=== PATIENT | male | born 1995 | race Caucasian/White ===

== ENCOUNTER 2017-05-24 01:58 | Emergency (ER) | payer BC, OTHER ==
--- NOTE | 2017-05-24 02:04 | PDOC ---
History of Present Illness - General Chief Complaint: Respiratory Stated Complaint: FEELS SHAKY,CANT CATCH MY BREATH Time Seen by Provider: 05/24/17 02:03 - History of Present Illness Initial Comments: This 22-year-old man with no previous medical history presents with sensation of not being able to catch his breath. Patient states that he usually falls asleep easily around midnight; tonight, he was unable to sleep after lying in his bed for an hour to 2 hours. He feels head fullness (states that it is not headache pain) and feeling that he could not catch his breath. He also had unusual feelings around his mouth (not numbness; states that he thought both corners of his mouth were drooping). Although he admits to feeling anxious/ jittery, he denies any new stress in his life. No history of anxiety or panic attacks. He had feeling of chilliness but no measured fever this evening. He denies cough/sore throat/runny nose or Nasal congestion. He has not had any nausea/ vomiting/diarrhea. He denies chest pain/abdominal pain. There is no neck pain or other muscle spasms/pain. Patient last ate approximately 4 hours prior to presentation and drank 1-2 beers. He denies any other recreational drug use tonight. He has not had any new medications/supplements or vitamins. Last caffeine ingestion was coffee at breakfast this morning Patient denies smoking Past History - Past Medical History Allergies/Adverse Reactions: Allergies Allergy/AdvReac Type Severity Reaction Status Date / Time No Known Allergies Allergy Verified 05/24/17 02:01 Home Medications: Ambulatory Orders NK [No Known Home Medication] 03/31/16 - Suicide/Smoking/Psychosocial Hx Smoking History: Never smoked Have you smoked in the past 12 months: No Hx Alcohol Use: No Drug/Substance Use Hx: No Substance Use Type: None Review of Systems - Review of Systems Able to Perform ROS?: Yes Comments:: 12 point review of systems is negative except for what is noted in the history of present illness *Physical Exam - Physical Exam Comments: GENERAL: Adult male, appearing anxious but in no acute distress Vital signs as noted HEAD: Normal with no signs of trauma. EYES: PERRLA, pupils 4 mm bilaterally EOMI, sclera anicteric, conjunctiva moderate injection bilaterally. ENT: Ears bilateral bulging tympanic membranes, no dullness/erythema, nares patent, Dry mucous membranes. Pharynx mildly erythematous without exudate NECK: Normal range of motion, supple without lymphadenopathy, JVD, or masses. LUNGS: Breath sounds equal, clear to auscultation bilaterally. No wheezes, and no crackles. HEART:Regular rate and rhythm, normal S1 and S2 without murmur, rub or gallop. ABDOMEN:.normal bowel sounds No guarding,tenderness or rebound.No masses No distention. EXTREMITIES: Normal range of motion, no edema. No clubbing or cyanosis. No erythema, or tenderness. NEUROLOGICAL: Cranial nerves II through XII grossly intact. Normal speech. No focal neurological deficits. MUSCULOSKELETAL: Back non-tender to palpation, no CVA tenderness SKIN: Warm, Dry, normal turgor, no rashes or lesions noted. Progress Note - Progress Note Progress Note: Otherwise healthy 22-year-old man presents with his mother having experienced a few hours of head fullness and sensation of not being able to catch his breath. No significant other symptoms and no sick contacts. Exam reveals pulse oximetry at 100% on room air; patient is afebrile at 98.3F orally; heart rate is 89 and blood pressure slightly elevated 142/88. His tympanic membranes are bulging without erythema/dullness; conjunctiva are mildly injected; pharynx is mildly erythematous. No other significant abnormalities on exam. Patient adamantly denies any stimulant use today except for coffee at breakfast this morning. He also denies any recreational drug (except for ethanol and 2 beers at dinner at 10 PM). No evidence of significant respiratory compromise; his lungs are clear with good air exchange. Although on exam he appears somewhat dehydrated with dry mucous membranes, most likely clinical presentation is early upper respiratory viral syndrome Patient states that he will not go to work tomorrow rest and drink plenty of fluids; he can use [id number] congestion/antihistamines as needed. She return to the emergency room if he has severe shortness of breath, persistent severe headache or high fever. Otherwise, should follow-up with his general doctor (Nelia) within the next 2 days *DC/Admit/Observation/Transfer Diagnosis at time of Disposition: Viral URI - Discharge Dispostion Disposition: HOME Condition at time of disposition: Stable - Patient Instructions Printed Discharge Instructions: DI for Viral Upper Respiratory Infection -- Adult Additional Instructions: Rest; no work tomorrow Drink plenty of fluids Can take [id number] antihistamines/decongestants as needed Follow-up with your general doctor within the next 48 hours Return to ER if you have severe shortness of breath/persistent headache/high fever
[2017-05-24 02:09] VITALS: BP 141/88; PULSE 89; TEMP 98.3; BMI 25.8
== END 2017-05-24 02:36 | disposition home or self-care (01) ==
LOC: FER 01:58
DX: J06.9 Acute upper respiratory infection, unspecified (principal)
CPT/HCPCS: 99281-25